=== PATIENT | male | born 1970 | race Caucasian/White ===

== ENCOUNTER → 2020-10-16 15:47 | Outpatient (BNVA) | payer OTHER, SELFPAY | PROVIDERS: Visit Provider Nurse Practitioner Family | DX: Z00.00 Encounter for general adult medical examination without abnormal findings (principal); Z12.11 Encounter for screening for malignant neoplasm of colon; Z12.5 Encounter for screening for malignant neoplasm of prostate; R53.83 Other fatigue | CPT/HCPCS: 80053; 82306; 82607; 84403; 84443; 85025; G0103 ==

== ENCOUNTER → 2020-12-12 08:13 | Outpatient (BNVA) | payer OTHER, SELFPAY | PROVIDERS: Referring Provider Surgery; Visit Provider Surgery | DX: Z20.822 Contact with and (suspected) exposure to COVID-19 (principal) | CPT/HCPCS: 87635 ==

== ENCOUNTER 2020-12-17 09:32 | Day surgery (SDC) | payer OTHER, SELFPAY ==
[2020-12-12 13:25] VITALS: BMI 27.8
--- NOTE | 2020-12-17 10:00 | ANES.PREANE2 ---
Pre-Anesthetic Assessment Pre-Anesthetic Assessment: Height/Weight: Height 1.83 m Weight 92.986 kg Preop Diagnosis: Screening colonoscopy Proposed Procedure: Operation Date: 12/17/20 11:00 Proposed Procedures p Colonoscopy 34971 z12.11(Not Applicable) - Molina Moses MD Was Beta Emerald taken within 24 hours: N/A Was Clonidine taken within 24 hours: N/A Social: Social History: No alcohol and No tobacco Exam: Pre-Anes Outpt Exam: alert, oriented x 3, clear to auscultation bilaterally and regular rate & rhythm Airway: Submandibular: WNL Cervical ROM: WNL MP: 2 Dentition: Full History/ROS: No significant history except as noted Anesthetic Plan: ASA status: 1 Anesthesia: MAC Risk of > 500 ml blood loss (7ml/kg in children): No PFSH Anesthesia PFSH: Medical History (Updated 10/20/20 @ 08:29 by HARMONY Harper) No significant past medical history Vitamin D deficiency Surgical History Hx of hernia repair Social History Smoking and tobacco status: never smoked Second hand smoke exposure: No Smoking risk assessment/counseling performed?: No Alcohol intake: never Desire information about alcohol rehabilitation?: No Counseling given: No Desire information about substance/drug rehabilitation?: No Counseling given: No Adopted: No Caregiver/support person: No Lives independently: Yes Household members: spouse Housing: House Marital status: Number of children: 5 Highest education level completed: High School Graduate service: No Current occupational status: employed History of recent travel: No Data Anesthesia Cardiac Studies: No Data to Display
--- NOTE | 2020-12-17 10:21 | P.HP_ITS ---
Same Day Surgery H&P Indication for Procedure/HPI DATE OF PROCEDURE: December 17, 2020 CHIEF COMPLAINT/INDICATIONFOR SURGICAL PROCEDURE: Screening colonoscopy PREOP DIAGNOSIS: Screening colonoscopy PLANNED PROCEDRUE: Operation Date: 12/17/20 11:00 Proposed Procedures p Colonoscopy 41664 z12.11(Not Applicable) - Molina Moses MD This is a pleasant 50 years old gentleman referred to my practice for screening colonoscopy. Patient reports occasional blood coming from the anus area patient never had one before and he denies history of colon cancer or change in bowel habits. ROS All systems have been reviewed negative except as per the above or per problem list. Medications/Allergies* Home Medications Medication Instructions Recorded Confirmed Type ascorbate calcium (vitamin C) 500 500 mg PO DAILY 10/16/20 12/12/20 History mg tablet cholecalciferol (vitamin D3) 25 25 mcg PO DAILY 10/16/20 12/12/20 History mcg (1,000 unit) capsule loratadine 10 mg tablet 10 mg PO DAILY 11/04/20 12/12/20 History melatonin 10 mg PO DAILY 12/17/20 12/17/20 History Allergies/Adverse Reactions Allergy/AdvReac Type Severity Reaction Status Date / Time No Known Allergies Allergy Unverified 12/17/20 10:22 Pertinent History/Comorbid Conditions* Medical History (Updated 10/20/20 @ 08:29 by HARMONY Harper) No significant past medical history Vitamin D deficiency Surgical History (Updated 10/16/20 @ 15:56 by HARMONY Harper) Hx of hernia repair Social History Smoking and tobacco status: never smoked Second hand smoke exposure: No Smoking risk assessment/counseling performed?: No Alcohol intake: never Desire information about alcohol rehabilitation?: No Counseling given: No Desire information about substance/drug rehabilitation?: No Counseling given: No Adopted: No Caregiver/support person: No Lives independently: Yes Household members: spouse Housing: House Marital status: Number of children: 5 Highest education level completed: High School Graduate service: No Current occupational status: employed History of recent travel: No Pertinent Exam Findings alert, oriented x 3, clear to auscultation bilaterally, regular rate & rhythm and procedure specific exam findings (Abdominal examination nontender nondistended soft) Recommendations Surgery/Procedure today (Colonoscopy with possible biopsy and possible polypectomy) Other Plans: Plan of care; After thorough history and physical examination and reviewing the chart, plan to perform screening colonoscopy. I discussed with the patient in details the risks,benefits,alternatives and indications.The risk of aspiration, bleeding, soft tissue injury, perforation of the colon and other potential concomitant complications were explained to the patient in details,also the potential need for Laproscoy/Laparotomy to repair any related complications including but not limited to colectomy and or Closotomy.The patient understood this well and did agree to proceed. Rationale was carefully and clearly discussed with the patient.Appropriate informed consent have been reviewed and signed All questions have been answered and all concerns have been addressed to patient's satisfaction. Verbal and written Instructions were given to the patient for colonoscopy prep Coding Level of Care Code Acute Passenger Representative for Lázaro Michael
[2020-12-17 10:24] VITALS: BP 131/79; PULSE 49; RESP 18; TEMP 36.8; O2SAT 100
[2020-12-17] MEDS: sodium chloride 0.9% 1,000 ML 30 ML IV (10:34)
[2020-12-17 12:14] VITALS: BP 96/56; PULSE 56; RESP 16; TEMP 36.5; O2SAT 100
[2020-12-17 12:23] VITALS: BP 113/59; PULSE 59; RESP 18; TEMP 36.4; O2SAT 98
[2020-12-17 12:35] VITALS: BP 113/59; PULSE 59; RESP 18; O2SAT 98
--- NOTE | 2020-12-17 12:50 | ANE.PACU2 ---
Inpatient post-anesthesia follow up: Airway intact: Yes Vital signs: Temperature 97.6 F Pulse Rate 59 Respiratory Rate 18 Blood Pressure 113/59 Pulse Oximetry 98 Oxygen Delivery Me thod Room Air Oxygen Flow Rate Fraction of Inspir ed Oxygen Hydration adequate: Yes Nausea and vomiting: No Pain level: 1 Mental status: Baseline
== END 2020-12-17 12:56 | disposition home or self-care (01) ==
PROVIDERS: Visit Provider Surgery
PROC: 0DJD8ZZ Inspection of Lower Intestinal Tract, Via Natural or Artificial Opening Endoscopic (ICD-10-PCS; CPT 45378; principal; 2020-12-17 11:00)
DX: Z12.11 Encounter for screening for malignant neoplasm of colon (principal); E55.9 Vitamin D deficiency, unspecified; D12.2 Benign neoplasm of ascending colon; D12.5 Benign neoplasm of sigmoid colon; K57.30 Diverticulosis of large intestine without perforation or abscess without bleeding
CPT/HCPCS: 45385; 88305; 96360; 96361; J2704; J7030

== ENCOUNTER → 2021-02-03 14:31 | Outpatient (BNVA) | payer OTHER, SELFPAY | PROVIDERS: PCP Nurse Practitioner Family; Visit Provider Nurse Practitioner Family | DX: J02.9 Acute pharyngitis, unspecified (principal) | CPT/HCPCS: 87071; 87880 ==

== ENCOUNTER → 2022-05-11 08:48 | Outpatient (BNVA) | payer OTHER, SELFPAY | PROVIDERS: PCP Nurse Practitioner; Visit Provider Nurse Practitioner | DX: Z13.6 Encounter for screening for cardiovascular disorders (principal); E55.9 Vitamin D deficiency, unspecified; Z12.5 Encounter for screening for malignant neoplasm of prostate | CPT/HCPCS: 80053; 80061; 81000; G0103 ==

== ENCOUNTER → 2023-05-30 14:07 | Outpatient (BNVA) | payer OTHER, SELFPAY | PROVIDERS: PCP Nurse Practitioner; Visit Provider Nurse Practitioner | DX: K21.9 Gastro-esophageal reflux disease without esophagitis (principal); W57.XXXA Bitten or stung by nonvenomous insect and other nonvenomous arthropods, initial encounter | CPT/HCPCS: 86003; 86008 ==